=== PATIENT | female | born 1990 | race American Indian/Alaskan Native ===

== ENCOUNTER 2016-09-20 08:45 | Emergency (ER) | payer OTHER ==
[2016-09-20 08:56] VITALS: BMI 34.3
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
--- NOTE | 2016-09-20 10:29 | CT ---
PROCEDURE: CT MAXILLOFACIAL BONES WITHOUT CONTRAST HISTORY: right periorbital pain COMPARISON: None TECHNIQUE: Contiguous axial CT images of the maxillofacial bones were obtained. Coronal and sagittal reformats were generated. Radiation dose: Total exam DLP = 662 mGy-cm. This CT exam was performed using one or more of the following dose reduction techniques: Automated exposure control, adjustment of the mA and/or kV according to patient size, and/or use of iterative reconstruction technique. FINDINGS: NASAL BONES: Unremarkable. ORBITS: There is soft tissue thickening anterior to the right orbit. This is consistent with preseptal cellulitis PARANASAL SINUSES/ MASTOIDS: There is some mucosal thickening in the left maxillary sinus MAXILLA: Unremarkable. MANDIBLE/ TEMPOROMANDIBULAR JOINTS: Unremarkable. SKULL BASE: Unremarkable. TEMPORAL BONES: Middle ears and mastoid grossly unremarkable. OTHER FINDINGS: None. IMPRESSION: No evidence of fracture.There is soft tissue thickening anterior to the right orbit. This is consistent with preseptal cellulitis
[2016-09-20 10:30] VITALS: TEMP 98.7; O2SAT 99
[2016-09-20 11:04] VITALS: BP 118/63; PULSE 79; RESP 18
== END 2016-09-20 11:10 | disposition home or self-care (01) ==
LOC: ED 08:45
DX: H11.31 Conjunctival hemorrhage, right eye (principal); S00.11XA Contusion of right eyelid and periocular area, initial encounter; Y04.0XXA Assault by unarmed brawl or fight, initial encounter; Y92.009 Unspecified place in unspecified non-institutional (private) residence as the place of occurrence of the external cause

== ENCOUNTER 2017-01-24 15:01 | Emergency (ER) | payer OTHER ==
[2017-01-24 15:01] VITALS: BMI 34.3
[2017-01-24 15:20] VITALS: TEMP 98.8; O2SAT 98
--- NOTE | 2017-01-24 15:50 | ED PDOC ---
Arrival/HPI - General Historian: Patient EM Caveat: Acuity of Condition - History of Present Illness Time/Duration: Prior to Arrival Symptom Onset: Gradual Symptom Course: Unchanged Quality: Aching Activities at Onset: Rest Context: Home <Artie Wilder - Last Filed: 01/24/17 18:15> <Gina Ybarra - Last Filed: 01/24/17 18:35> - General Chief Complaint: Abdominal Pain Time Seen by Provider: 01/24/17 15:08 - History of Present Illness Narrative History of Present Illness (Text): 01/24/17 15:43 Patient is a 27 year old female presenting to [facility] ED 01/23/17 with complaints of abdominal pain, n/v, constipation, back pain, and headache. She states she has been unable to eat this past week due to constant nausea. Patient denies fevers and chills but admits to experiencing hot flashes. Patient discussed with her PMD regarding symptoms and was prescribed abx because she was also presenting with cold symptoms. Patient states according to her menses calendar, she is late , and also admits to an episode of unprotected sex about three weeks prior. Patient denies dysuria, increased frequency, dizziness, weakness, chest pain, shortness of breath. PMD: Dr. Tracey (Artie Wilder) Past Medical History - Provider Review Nursing Documentation Reviewed: Yes - Infectious Disease Hx of Infectious Diseases: None - Cardiac Hx Cardiac Disorders: No - Pulmonary Hx Respiratory Disorders: Yes Hx Asthma: Yes - Neurological Hx Neurological Disorder: No - HEENT Hx HEENT Disorder: No - Renal Hx Renal Disorder: No - Endocrine/Metabolic Hx Endocrine Disorders: No - Hematological/Oncological Hx Blood Disorders: No - Integumentary Hx Dermatological Disorder: No - Musculoskeletal/Rheumatological Hx Musculoskeletal Disorders: No - Gastrointestinal Hx Gastrointestinal Disorders: No - Genitourinary/Gynecological Hx Genitourinary Disorders: No - Psychiatric Hx Psychophysiologic Disorder: Yes Hx Depression: Yes (post ) Hx Substance Use: No - Surgical History Hx Section: Yes - Anesthesia Hx Anesthesia: Yes Hx Anesthesia Reactions: No Hx Malignant Hyperthermia: No <Artie Wilder - Last Filed: 01/24/17 18:15> Family/Social History - Physician Review Nursing Documentation Reviewed: Yes Family/Social History: Other (non contributory) Smoking Status: Never Smoked Hx Alcohol Use: No Hx Substance Use: No <Artie Wilder - Last Filed: 01/24/17 18:15> Allergies/Home Meds <Artie Wilder - Last Filed: 01/24/17 18:15> <Gina Ybarra - Last Filed: 01/24/17 18:35> Allergies/Adverse Reactions: Allergies No Known Allergies Allergy (Verified 01/24/17 15:20) Home Medications: Home Meds Medication Instructions Recorded Confirmed Azithromycin [Z-Rizwan] 1 tab PO DAILY 01/24/17 01/24/17 Review of Systems - Physician Review All systems were reviewed & negative as marked: Yes - Review of Systems Systems not reviewed;Unavailable: Acuity of Condition Constitutional: absent: Fatigue Eyes: absent: Vision Changes ENT: absent: Hearing Changes Respiratory: absent: SOB, Cough, Wheezing Cardiovascular: absent: Chest Pain, Palpitations Gastrointestinal: Abdominal Pain, Constipation, Nausea, Vomiting. absent: Diarrhea Genitourinary Female: absent: Dysuria, Frequency Musculoskeletal: Back Pain Skin: absent: Rash, Pruritis Neurological: Headache. absent: Dizziness, Focal Weakness Psychiatric: Normal <Artie Wilder - Last Filed: 01/24/17 18:15> Physical Exam Vital Signs Reviewed: Yes Temperature: Afebrile Blood Pressure: Normal Pulse: Regular Respiratory Rate: Normal Appearance: Positive for: Comfortable Pain Distress: None Mental Status: Positive for: Alert and Oriented X 3 - Systems Exam Head: Present: Atraumatic, Normocephalic Extroacular Muscles: Present: EOMI Mouth: Present: Moist Mucous Membranes. No: Dry Respiratory/Chest: Present: Clear to Auscultation, Good Air Exchange. No: Wheezes, Rhonchi Cardiovascular: Present: Regular Rate and Rhythm, Normal S1, S2. No: Murmurs Abdomen: Present: Tenderness (suprapubic ), Normal Bowel Sounds. No: Distention , Rebound, Guarding Upper Extremity: Present: Normal Inspection Lower Extremity: Present: Normal Inspection Neurological: Present: CN II-XII Intact Skin: Present: Warm, Normal Color Psychiatric: Present: Alert, Oriented x 3 <Artie Wilder - Last Filed: 01/24/17 18:15> Vital Signs Temp Pulse Resp BP Pulse Ox 01/24/17 18:21 69 18 111/71 98 01/24/17 15:16 98.8 F 76 16 109/77 98 Medical Decision Making <Artie Wilder - Last Filed: 01/24/17 18:15> <Gina Ybarra - Last Filed: 01/24/17 18:35> ED Course and Treatment: 01/24/17 15:56 Assessment 27 year old female with complaints of abdominal pain, back pain, nausea and vomiting Plan - POC urine - UA, Urine C&S - POC urine is positive - Recommend follow up with PMD and OBGYN (Artie Wilder) 01/24/17 18:31 Patient with noted history seen and examined with resident. Labs showing with beta HCG of 790 - sono done is too early for diagnosis at this time. Abdomen is nontender - will d/c on vitamins and diclegis and have her f/u OBGYN for repeat Beta HCG in two days. (Gina Ybarra) - Lab Interpretations Lab Results: 01/24/17 17:05 01/24/17 17:05 Lab Results 01/24/17 17:05: Sodium 139, Potassium 3.7, Chloride 101, Carbon Dioxide 28, Anion Gap 14, BUN 7, Creatinine 0.7, Est GFR ( Amer) > 60, Est GFR (Non- Af Amer) > 60, Random Glucose 85, Calcium 9.8, Total Bilirubin 0.2, AST 50 H, ALT 66 H, Alkaline Phosphatase 91, Total Protein 8.1, Albumin 4.4, Globulin 3.7 , Albumin/Globulin Ratio 1.2, Lipase 57 01/24/17 17:05: Beta HCG, Quant 790.83 H 01/24/17 17:05: WBC 5.1, RBC 4.47, Hgb 12.6, Hct 37.0, MCV 82.8, MCH 28.2, MCHC 34.1, RDW 13.4, Plt Count 301, MPV 9.4, Gran % 57.0, Lymph % (Auto) 33.1, Mcclain % (Auto) 7.9 H, Eos % (Auto) 1.8, Baso % (Auto) 0.2, Gran # 2.90, Lymph # 1.7, Mcclain # 0.4, Eos # 0.1, Baso # 0.01 01/24/17 16:00: Urine Color Yellow, Urine Appearance Clear, Urine pH 7.0, Ur Specific [place] 1.015, Urine Protein Negative, Urine Glucose (UA) Negative, Urine Ketones Negative, Urine Blood Negative, Urine Nitrate Negative, Urine Bilirubin Negative, Urine Urobilinogen 0.2, Ur Leukocyte Esterase Negative - RAD Interpretation Radiology Orders: 01/24/17 16:19 OB TRANSVAGINAL [US] Stat - Medication Orders Current Medication Orders: Discontinued Medications Famotidine (Pepcid) 20 mg IVP STAT STA Stop: 01/24/17 16:23 Last Admin: 01/24/17 17:10 Dose: 20 mg IVP Administration Document 01/24/17 17:10 EQ (Rec: 01/24/17 18:19 EQ [email or web address]) Charges for Administration # of IVP Administrations 1 Sodium Chloride (Sodium Chloride 0.9%) 1,000 mls @ 999 mls/hr IV .Q1H1M STA Stop: 01/24/17 17:22 Last Admin: 01/24/17 17:10 Dose: 999 mls/hr eMAR Start Stop Document 01/24/17 17:10 EQ (Rec: 01/24/17 18:19 EQ [email or web address]) Intravenous Solution Start Date 01/24/17 Start Time 17:10 Ondansetron HCl (Zofran Inj) 4 mg IVP STAT STA Stop: 01/24/17 16:23 Last Admin: 01/24/17 17:20 Dose: 4 mg IVP Administration Document 01/24/17 17:20 EQ (Rec: 01/24/17 18:20 EQ [email or web address]) Charges for Administration # of IVP Administrations 1 - PA / SANFORIZING MACHINE OPERATOR / Resident Statement DOROTA has reviewed & agrees with the documentation as recorded. / has examined the patient and agrees with the treatment plan. <Gina Ybarra - Last Filed: 01/24/17 18:35> Disposition/Present on Arrival - Present on Arrival Any Indicators Present on Arrival: No History of DVT/PE: No History of Uncontrolled Diabetes: No Urinary Catheter: No History of Decub. Ulcer: No History Surgical Site Infection Following: None - Disposition Have Diagnosis and Disposition been Completed?: Yes <Artie Wilder - Last Filed: 01/24/17 18:15> - Disposition Disposition Time: 18:10 Patient Plan: Discharge <Gina Ybarra - Last Filed: 01/24/17 18:35> - Disposition Diagnosis: Disposition: HOME/ ROUTINE Patient Problems: Current Active Problems Problem Status Onset Acute Condition: GOOD Additional Instructions: Drink plenty of fluids. vitamins daily. Diclegis as prescribed for nausea. Your beta-HCG level today was 790; you need to have it repeated by your OGBYN in 2 days. Follow up with your OBGYN. Return to the emergency department if any new concerning symptoms. Prescriptions: Doxylamine/Pyridoxine HCl (B6) [Mic Walls 10-10 mg Tablet] 2 tab PO HS #20 tablet. Multivit/Folic Acid/I [ Plus] 1 tab PO DAILY #100 tab Referrals: Lor Frank NP [Primary Care Provider] - Follow up with primary Forms: [employer] (Macedonian)
[2017-01-24 16:22] LABS: URINE BILIRUBIN NEGATIVE (NEGATIVE); URINE BLOOD NEGATIVE (NEGATIVE); URINE GLUCOSE (UA) NEGATIVE (NEGATIVE); URINE KETONE NEGATIVE (NEGATIVE); URINE LEUKOCYTE ESTERASE NEGATIVE Leu/uL (NEGATIVE); URINE PROTEIN NEGATIVE mg/dL (<30 mg/dL); URINE UROBILINOGEN 0.2 E.U./dL (<1 E.U./dL)
[2017-01-24] MEDS ORDERED: Sodium Chloride 0.9% 1,000 ML IV STA (16:22)
[2017-01-24 16:25] LABS: URINE APPEARANCE CLEAR (CLEAR); URINE COLOR YELLOW (YELLOW)
--- NOTE | 2017-01-24 17:03 | US ---
HISTORY: preg, abd pain - r/o ectopic. History of positive test done in ER-urine test. Blood work still not available. LMP 12/21/2016. Estimated gestational age by LMP is 4 weeks 6 days. COMPARISON: Transvaginal ultrasound 08/29/2015 TECHNIQUE: Transabdominal and transvaginal FINDINGS: UTERUS: Measures 11 by 7 x 8.2 cm. Anteverted. Normal in size and appearance. No fibroid or other mass lesion seen. Possible small intrauterine gestational sac 4.5 by 2.0 x 6.3 mm. No yolk sac, embryonic pole noted. ENDOMETRIUM: Measures 8 mm in diameter. Unremarkable. CERVIX: 3.8 cm RIGHT OVARY: Measures 3.0 x 1.3 x 1 point sick cm. No solid mass. Normal flow. LEFT OVARY: Measures 4.4 x 2.3 x 2.1 cm. No solid mass. Normal flow. A 3.0 x 1.6 x 2.0 cm corpus luteal cyst is suggested. FREE FLUID: There is some free fluid in the cul-de-sac noted OTHER FINDINGS: None. IMPRESSION: No intrauterine embryonic pole with cardiac activity noted. No ectopic noted. An ectopic is not excluded. A less than 6 week gestational intrauterine is still within the differential. Correlation with serial beta HCG levels recommended
[2017-01-24 17:10] LABS: BASO # 0.01 K/mm3 (0.0-2.0); BASO % 0.2 % (0.0-3.0); EOS # 0.1 (0.0-0.7); EOS % 1.8 % (1.5-5.0); GRAN # 2.9 (1.4-6.5); LYMPH # 1.7 (1.2-3.4); LYMPH % 33.1 % (22.0-35.0); MEAN CELL VOLUME 82.8 fl (80.0-105.0); MEAN CORPUSCULAR HEMOGLOBIN 28.2 pg (25.0-35.0); MEAN CORPUSCULAR HGB CONC 34.1 g/dl (31.0-37.0); MEAN PLATELET VOLUME 9.4 fl (7.0-11.0); MONO # 0.4 (0.1-0.6); MONO % 7.9 % (1.0-6.0); RED CELL DISTRIBUTION WIDTH 13.4 % (11.5-14.5); WHITE BLOOD COUNT 5.1 10^3/ul (4.5-11.0)
[2017-01-24 17:24] LABS: ALB/GLOB RATIO 1.2 (1.1-1.8); ALKALINE PHOSPHATASE 91 U/L (38-126); ALT/SGPT 66 U/L (7-56); AST/SGOT 50 U/L (14-36); BILIRUBIN,TOTAL 0.2 mg/dL (0.2-1.3); BLOOD UREA NITROGEN 7 mg/dL (7-21); CALCIUM 9.8 mg/dL (8.4-10.5); CARBON DIOXIDE 28 mmol/L (21-33); CHLORIDE 101 mmol/L (98-107); GFR AFRICAN-AMERICAN > 60; GLUCOSE,RANDOM 85 mg/dL (70-110); LIPASE 57 U/L (23-300); POTASSIUM 3.7 mmol/L (3.6-5.0); SODIUM 139 mmol/L (132-148); TOTAL PROTEIN 8.1 g/dL (5.8-8.3)
[2017-01-24 18:21] VITALS: BP 111/71; PULSE 69; RESP 18
== END 2017-01-24 18:20 | disposition home or self-care (01) ==
LOC: ED 15:01
DX: O26.891 Other specified pregnancy related conditions, first trimester (principal); Z3A.01 Less than 8 weeks gestation of pregnancy; R10.9 Unspecified abdominal pain; R51 Headache; M54.9 Dorsalgia, unspecified
CPT/HCPCS: 76817; 80053; 81003; 83690; 84702; 85025; 87086; 96374; 96375; 99284; J2405; J7040

== ENCOUNTER 2017-03-07 12:41 | Emergency (ER) | payer OTHER ==
[2017-03-07 12:42] VITALS: BMI 34.3
[2017-03-07 13:02] VITALS: TEMP 99; O2SAT 99
[2017-03-07] MEDS ORDERED: Sodium Chloride 0.9% 1,000 ML IV STA (13:10)
[2017-03-07 14:05] LABS: PH,URINE 6.5 (4.7-8.0); URINE BILIRUBIN NEGATIVE (NEGATIVE); URINE BLOOD LARGE (NEGATIVE); URINE GLUCOSE (UA) NEGATIVE (NEGATIVE); URINE KETONE NEGATIVE (NEGATIVE); URINE LEUKOCYTE ESTERASE SMALL Leu/uL (NEGATIVE); URINE PROTEIN TRACE mg/dL (<30 mg/dL); URINE UROBILINOGEN 0.2 E.U./dL (<1 E.U./dL)
[2017-03-07 14:05] LABS: BASO # 0.02 K/mm3 (0.0-2.0); BASO % 0.5 % (0.0-3.0); EOS # 0.2 (0.0-0.7); EOS % 5.7 % (1.5-5.0); GRAN # 1.99 (1.4-6.5); GRAN % 51.8 % (50.0-68.0); HEMATOCRIT 38.2 % (36.0-48.0); LYMPH # 1.3 (1.2-3.4); LYMPH % 34.5 % (22.0-35.0); MEAN CELL VOLUME 82.9 fl (80.0-105.0); MEAN CORPUSCULAR HGB CONC 33.8 g/dl (31.0-37.0); MEAN PLATELET VOLUME 10.4 fl (7.0-11.0); MONO # 0.3 (0.1-0.6); MONO % 7.5 % (1.0-6.0); RED CELL DISTRIBUTION WIDTH 13.4 % (11.5-14.5); WHITE BLOOD COUNT 3.9 10^3/ul (4.5-11.0)
[2017-03-07 14:08] LABS: URINE APPEARANCE SL CLOUDY (CLEAR); URINE COLOR YELLOW (YELLOW)
[2017-03-07 14:15] LABS: URINE BACTERIA FEW (NEG); URINE RBC 20 - 25 /hpf (0-2)
[2017-03-07 14:18] LABS: ALB/GLOB RATIO 1.4 (1.1-1.8); ALKALINE PHOSPHATASE 67 U/L (38-126); ALT/SGPT 24 U/L (7-56); AST/SGOT 23 U/L (14-36); BILIRUBIN,TOTAL 0.5 mg/dL (0.2-1.3); BLOOD UREA NITROGEN 9 mg/dL (7-21); CALCIUM 9.8 mg/dL (8.4-10.5); CARBON DIOXIDE 26 mmol/L (21-33); CHLORIDE 103 mmol/L (98-107); GFR AFRICAN-AMERICAN > 60; GLUCOSE,RANDOM 91 mg/dL (70-110); POTASSIUM 4.2 mmol/L (3.6-5.0); SODIUM 138 mmol/L (132-148); TOTAL PROTEIN 7.6 g/dL (5.8-8.3)
--- NOTE | 2017-03-07 15:12 | US ---
HISTORY: bleeding 27-year-old female ; LMP 12/21/2016 ; positive test through ER. This is a follow-up exam to the prior 01/24/2017 study with the same LMP date provided and history of another positive test in the ER . As per discussion with Phylicia at the PA in the ER, patient's initial beta HCG with 790 01/24/2017. I believe the history that I have with suggest of a positive urine test at that time. The current beta HCG is 4715 . No interval the HCG levels are known. The patient is having minimal discomfort according to Phylicia. COMPARISON: 01/24/2017 TECHNIQUE: Endovaginal FINDINGS: UTERUS: Measures 11.5 x 7.3 x 6.7 cm. Normal in size and appearance. No fibroid or other mass lesion seen. The prior thickened endometrium was centered to the fundal level. An equivocal 4.5 x 2.0 x 6.3 mm tiny intrauterine gestational sac so questioned previously. Then no yolk sac or embryonic pole is noted. Patient is a clinical dates by LMP than were 4 weeks 6 days. Currently a mission a pin the gestational sac is lower in position closer to the cervix lower uterine body level with an equivocal irregularly shaped yolk sac is possible measuring 8 x 6 by 3 mm. No abnormal appearing embryonic pole is seen now. No sub endometrial/sub decidual hemorrhagic appearance suggested either. ENDOMETRIUM: As above CERVIX: As above RIGHT OVARY: Measures 3.0 x 1.8 x 1.4 cm cm. No solid mass. Normal flow. LEFT OVARY: Measures 3.4 x 2.5 x 2.0 cm. No solid mass. Normal flow. FREE FLUID: There is probable trace thread-like free fluid in the cul-de-sac -similar to what was noted previously. No interval increase free fluid in the cul-de-sac suggested OTHER FINDINGS: No extra uterine gestational sac appreciated IMPRESSION: No normal-appearing intrauterine gestation, no interval embryonic pole identified. Possible irregular yolk sac identified. No normal doubling beta HCG levels since the prior exam. Findings are concerning concerning for a a miscarriage in progress at the lower uterine body -cervical level now. An ectopic is not excluded. And continued clinical follow-up with serial beta HCG levels and imaging is advised. Current appearance is not consistent with a a ambrose of age of 10 weeks 6 days per LMP. Per the gestational sac size -a 6 week 1 day 0 weeks 4 day gestational stated development reached is suggested. Comments: Findings and recommendations were directly discussed with Phylicia at the PA in the ER on 03/07/2017 at approximately 3 o
--- NOTE | 2017-03-07 15:58 | ED PDOC ---
Arrival/HPI - General Chief Complaint: Female Genitourinary Time Seen by Provider: 03/07/17 13:00 Historian: Patient - History of Present Illness Narrative History of Present Illness (Text): 03/07/17 15:55 27-year-old female A1 presents today with 3 day history of vaginal bleeding. Patient states she's had a brownish vaginal discharge for the past 2 days and today she noticed bright red discharge. Patient states since arriving in the emergency room the bleeding has stopped. She is complaining of minimal abdominal cramping which has improved. She denies nausea or vomiting no chest pain or shortness of breath. She denies any urinary symptoms. Denies back pain. Denies fevers or chills. Patient states she has had 1 ultrasound and has seen the livestock yard supervisor multiple times with repeat beta hCGs. No other complaints Time/Duration: Other (3 days) Symptom Onset: Sudden Symptom Course: Improving Severity Level: 2 Past Medical History - Provider Review Nursing Documentation Reviewed: Yes - Travel History Have you recently traveled outside [place] w/in the past 3 mons?: No - Infectious Disease Hx of Infectious Diseases: None - Tetanus Immunization Tetanus Immunization: Unknown - Cardiac Hx Cardiac Disorders: No - Pulmonary Hx Respiratory Disorders: Yes Hx Asthma: Yes - Neurological Hx Neurological Disorder: No - HEENT Hx HEENT Disorder: No - Renal Hx Renal Disorder: No - Endocrine/Metabolic Hx Endocrine Disorders: No - Hematological/Oncological Hx Blood Disorders: No - Integumentary Hx Dermatological Disorder: No - Musculoskeletal/Rheumatological Hx Musculoskeletal Disorders: No - Gastrointestinal Hx Gastrointestinal Disorders: No - Genitourinary/Gynecological Hx Genitourinary Disorders: No - Psychiatric Hx Psychophysiologic Disorder: Yes Hx Depression: Yes (post ) Hx Substance Use: No - Surgical History Hx Section: Yes - Anesthesia Hx Anesthesia: Yes Hx Anesthesia Reactions: No Hx Malignant Hyperthermia: No Family/Social History - Physician Review Nursing Documentation Reviewed: Yes Family/Social History: Unknown Family HX Smoking Status: Never Smoked Hx Alcohol Use: No Hx Substance Use: No Allergies/Home Meds Allergies/Adverse Reactions: Allergies No Known Allergies Allergy (Verified 03/07/17 13:02) Home Medications: Home Meds Medication Instructions Recorded Confirmed No Known Home Med 03/07/17 03/07/17 Review of Systems - Review of Systems Constitutional: absent: Fatigue, Fevers Respiratory: absent: SOB, Cough Cardiovascular: absent: Chest Pain, Palpitations Gastrointestinal: Abdominal Pain. absent: Constipation, Nausea Genitourinary Female: Vaginal Bleeding. absent: Frequency, Hematuria, Vaginal Discharge Musculoskeletal: absent: Arthralgias, Back Pain, Neck Pain Skin: absent: Rash, Pruritis Neurological: absent: Headache, Dizziness Psychiatric: absent: Anxiety, Depression, Suicidal Ideation Physical Exam Vital Signs Reviewed: Yes Vital Signs Temp Pulse Resp BP Pulse Ox 03/07/17 15:25 74 18 117/75 99 03/07/17 12:59 99 F 70 16 115/81 99 Temperature: Afebrile Blood Pressure: Normal Pulse: Regular Respiratory Rate: Normal Appearance: Positive for: Well-Appearing, Non-Toxic, Comfortable Pain Distress: None Mental Status: Positive for: Alert and Oriented X 3 - Systems Exam Head: Present: Atraumatic Mouth: Present: Moist Mucous Membranes Neck: Present: Normal Range of Motion Respiratory/Chest: Present: Clear to Auscultation, Good Air Exchange. No: Respiratory Distress, Accessory Muscle Use Cardiovascular: Present: Regular Rate and Rhythm, Normal S1, S2. No: Murmurs Abdomen: Present: Normal Bowel Sounds. No: Tenderness, Distention, Peritoneal Signs, Rebound, Guarding Genitourinary/Pelvic Exam: Present: Normal External Genitalia, Vaginal Bleeding (small amount of vaginal bleeding noted; ), Cervical os Closed, Other ( chaparoned by Mildred GILL EMT). No: Vaginal Discharge, Vaginal Lesions, Adenexal Tenderness, Adenexal Mass, Cervical Motion Tendernes, Odor Back: Present: Normal Inspection. No: CVA Tenderness, Midline Tenderness Neurological: Present: GCS=15 Skin: Present: Warm, Dry, Normal Color. No: Rashes Psychiatric: Present: Alert, Oriented x 3 Medical Decision Making ED Course and Treatment: 03/07/17 15:58 Patient is nontoxic well appearing in no distress. vital signs are stable. Abdomen is soft nontender nondistended CBC: wnl CMP: wnl Beta hC.60 TYPE AND SCREEN: A+ Urinalysis: + blood, + 1-3 wbcs, + 6-8 epithelial cells, few bacteria Will send urine cultures. Ultrasound: IMPRESSION: No normal-appearing intrauterine gestation, no interval embryonic pole identified. Possible irregular yolk sac identified. No normal doubling beta HCG levels since the prior exam. Findings are concerning concerning for a a miscarriage in progress at the lower uterine body -cervical level now. An ectopic is not excluded. And continued clinical follow-up with serial beta HCG levels and imaging is advised. Current appearance is not consistent with a a ambrose of age of 10 weeks 6 days per LMP. Per the gestational sac size -a 6 week 1 day 0 weeks 4 day gestational stated development reached is suggested. Discussed all the results the patient. advised f/u with the nurse extern within the next 2 days. Pt states she has f/u appointment with MANAGER OF PROGRAM in 2 days. I advised repeat beta hcg in 2 days. I advised immediate return if symptoms worsen,persist or if new symptoms develop. copy of results given to patient to bring to tube sizer operator Impression: threatened Tylenol every 4 hours as needed for pain Increase fluids Followup with the tube sizer operator within the next 2 days Return immediately if symptoms worsen persist or if new symptoms develop: High fevers, heavy bleeding, severe abdominal pain, vomiting, diarrhea, dizziness or weakness or any other concerning symptoms develop. Repeat beta hCG in 48 hours 03/07/17 16:11 - Lab Interpretations Lab Results: 03/07/17 13:50 03/07/17 13:50 Lab Results 03/07/17 13:50: WBC 3.9 L D, RBC 4.61, Hgb 12.9, Hct 38.2, MCV 82.9, MCH 28.0, MCHC 33.8, RDW 13.4, Plt Count 221, MPV 10.4, Gran % 51.8, Lymph % (Auto) 34.5, [place] % (Auto) 7.5 H, Eos % (Auto) 5.7 H, Baso % (Auto) 0.5, Gran # 1.99, Lymph # 1.3, [place] # 0.3, Eos # 0.2, Baso # 0.02 03/07/17 13:50: Blood Type A POSITIVE, Antibody Screen Negative, BBK History Checked No verified bt 03/07/17 13:50: Beta HCG, Quant 4715.60 H 03/07/17 13:50: Sodium 138, Potassium 4.2, Chloride 103, Carbon Dioxide 26, Anion Gap 13, BUN 9, Creatinine 0.8, Est GFR ( Amer) > 60, Est GFR (Non- Af Amer) > 60, Random Glucose 91, Calcium 9.8, Total Bilirubin 0.5, AST 23, ALT 24, Alkaline Phosphatase 67, Total Protein 7.6, Albumin 4.4, Globulin 3.2, Albumin/Globulin Ratio 1.4 03/07/17 13:45: Urine Color Yellow, Urine Appearance Sl cloudy, Urine pH 6.5, Ur Specific [place] 1.020, Urine Protein Trace H, Urine Glucose (UA) Negative, Urine Ketones Negative, Urine Blood Large H, Urine Nitrate Negative, Urine Bilirubin Negative, Urine Urobilinogen 0.2, Ur Leukocyte Esterase Small H, Urine RBC 20 - 25, Urine WBC 1 - 3, Ur Epithelial Cells 6 - 8, Urine Bacteria Few - RAD Interpretation Radiology Orders: 03/07/17 13:39 OB TRANSVAGINAL [US] Stat - Medication Orders Current Medication Orders: Discontinued Medications Sodium Chloride (Sodium Chloride 0.9%) 1,000 mls @ 999 mls/hr IV .Q1H1M STA Stop: 03/07/17 14:10 Last Admin: 03/07/17 13:57 Dose: 999 mls/hr eMAR Start Stop Document 03/07/17 13:57 [email or web address] (Rec: 03/07/17 13:57 [id number]) Intravenous Solution Start Date 03/07/17 Start Time 13:57 End Date 03/07/17 Disposition/Present on Arrival - Present on Arrival Any Indicators Present on Arrival: No History of DVT/PE: No History of Uncontrolled Diabetes: No Urinary Catheter: No History of Decub. Ulcer: No History Surgical Site Infection Following: None - Disposition Have Diagnosis and Disposition been Completed?: Yes Diagnosis: Threatened Disposition: HOME/ ROUTINE Disposition Time: 16:01 Patient Plan: Discharge Patient Problems: Current Active Problems Problem Status Onset Threatened Acute Condition: GOOD Discharge Instructions (ExitCare): Threatened Miscarriage (ED) Additional Instructions: Tylenol every 4 hours as needed for pain Increase fluids Followup with the tube sizer operator within the next 2 days Return immediately if symptoms worsen persist or if new symptoms develop: High fevers, heavy bleeding, severe abdominal pain, vomiting, diarrhea, dizziness or weakness or any other concerning symptoms develop. Repeat beta hCG in 48 hours Referrals: Bj Howell MD [Staff Provider] - [facility] - Follow up with primary Forms: Bagel Nash (Serbian)
[2017-03-07 16:18] VITALS: BP 119/77; PULSE 69
[2017-03-07 16:25] VITALS: RESP 19
== END 2017-03-07 16:25 | disposition home or self-care (01) ==
LOC: ED 12:41
DX: O20.0 Threatened abortion (principal)
CPT/HCPCS: 76817; 80053; 81001; 84702; 85025; 86850; 86900; 87086; 99283; J7040

== ENCOUNTER 2017-03-07 21:50 | Observation (INO) | payer OTHER ==
[2017-03-07 21:58] VITALS: BMI 33.3
[2017-03-07] MEDS ORDERED: Sodium Chloride 0.9% 1,000 ML IV STA (22:27)
[2017-03-07] MEDS ORDERED: Morphine 5 MG/ML SYRINGE IVP STA (22:27)
[2017-03-07 22:57] LABS: BASO # 0.01 K/mm3 (0.0-2.0); BASO % 0.2 % (0.0-3.0); EOS # 0.2 (0.0-0.7); EOS % 2.7 % (1.5-5.0); GRAN # 4.33 (1.4-6.5); GRAN % 69.1 % (50.0-68.0); HEMATOCRIT 36.6 % (36.0-48.0); LYMPH # 1.5 (1.2-3.4); LYMPH % 23.9 % (22.0-35.0); MEAN CELL VOLUME 83.2 fl (80.0-105.0); MEAN CORPUSCULAR HGB CONC 33.6 g/dl (31.0-37.0); MEAN PLATELET VOLUME 10.5 fl (7.0-11.0); MONO # 0.3 (0.1-0.6); MONO % 4.1 % (1.0-6.0); RED CELL DISTRIBUTION WIDTH 13.3 % (11.5-14.5); WHITE BLOOD COUNT 6.3 10^3/ul (4.5-11.0)
--- NOTE | 2017-03-07 23:48 | ED PDOC ---
Arrival/HPI <BillFransisco leach - Last Filed: 03/08/17 01:00> - General Historian: Patient - History of Present Illness Time/Duration: Other (tonight) Symptom Onset: Gradual Symptom Course: Unchanged Activities at Onset: Light Context: Home <Jessica Mejia PA-C - Last Filed: 03/08/17 02:18> - General Chief Complaint: Female Genitourinary Time Seen by Provider: 03/07/17 22:08 - History of Present Illness Narrative History of Present Illness (Text): 03/07/17 22:25 27 year old female, A1, who presents to the Emergency department complaining of vaginal bleeding. Patient states she was seen in the emergency department earlier today and was diagnosed with a threatened . Patient states as she got home she began experiencing heavy bleeding with large clots and lower abdominal pain. Patient denies any fever, chills, nausea, vomiting, diarrhea, urinary symptoms, back pain, neck pain, headache, dizziness, or any other complaints. (Jessica Mejia PA-C) Past Medical History - Provider Review Nursing Documentation Reviewed: Yes - Infectious Disease Hx of Infectious Diseases: None - Tetanus Immunization Tetanus Immunization: Unknown - Cardiac Hx Cardiac Disorders: No - Pulmonary Hx Respiratory Disorders: Yes Hx Asthma: Yes - Neurological Hx Neurological Disorder: No - HEENT Hx HEENT Disorder: No - Renal Hx Renal Disorder: No - Endocrine/Metabolic Hx Endocrine Disorders: No - Hematological/Oncological Hx Blood Disorders: No - Integumentary Hx Dermatological Disorder: No - Musculoskeletal/Rheumatological Hx Musculoskeletal Disorders: No - Gastrointestinal Hx Gastrointestinal Disorders: No - Genitourinary/Gynecological Hx Genitourinary Disorders: No - Psychiatric Hx Psychophysiologic Disorder: Yes Hx Depression: Yes (post ) Hx Substance Use: No - Surgical History Hx Section: Yes - Anesthesia Hx Anesthesia: Yes Hx Anesthesia Reactions: No Hx Malignant Hyperthermia: No <Jessica Mejia PA-C - Last Filed: 03/08/17 02:18> Family/Social History - Physician Review Nursing Documentation Reviewed: Yes Family/Social History: Unknown Family HX Smoking Status: Never Smoked Hx Alcohol Use: No Hx Substance Use: No <Jessica Mejia PA-C - Last Filed: 03/08/17 02:18> Allergies/Home Meds <Bill,Robert - Last Filed: 03/08/17 01:00> <Jessica Mejia PA-C - Last Filed: 03/08/17 02:18> Allergies/Adverse Reactions: Allergies No Known Allergies Allergy (Verified 03/07/17 21:57) Home Medications: Home Meds Medication Instructions Recorded Confirmed No Known Home Med 03/07/17 03/07/17 Review of Systems - Physician Review All systems were reviewed & negative as marked: Yes - Review of Systems Constitutional: Normal. absent: Fevers Eyes: Normal ENT: Normal Respiratory: Normal. absent: SOB, Cough Cardiovascular: Normal. absent: Chest Pain Gastrointestinal: Abdominal Pain. absent: Diarrhea, Nausea, Vomiting Genitourinary Female: Vaginal Bleeding Musculoskeletal: Normal. absent: Back Pain, Neck Pain Skin: Normal. absent: Rash Neurological: Normal. absent: Headache, Dizziness Endocrine: Normal Hemo/Lymphatic: Normal Psychiatric: Normal <Jessica Mejia PA-C - Last Filed: 03/08/17 02:18> Physical Exam Vital Signs Reviewed: Yes Temperature: Afebrile Blood Pressure: Normal Pulse: Regular Respiratory Rate: Normal Appearance: Positive for: Well-Appearing, Non-Toxic, Comfortable Pain Distress: Moderate Mental Status: Positive for: Alert and Oriented X 3, other (Very anxious/ emotional) - Systems Exam Head: Present: Atraumatic, Normocephalic Pupils: Present: PERRL Extroacular Muscles: Present: EOMI Conjunctiva: Present: Normal Mouth: Present: Moist Mucous Membranes Neck: Present: Normal Range of Motion Respiratory/Chest: Present: Clear to Auscultation, Good Air Exchange. No: Respiratory Distress, Accessory Muscle Use Cardiovascular: Present: Regular Rate and Rhythm, Normal S1, S2. No: Murmurs Abdomen: Present: Tenderness (Moderate lower abdominal tenderness), Normal Bowel Sounds. No: Distention, Peritoneal Signs Genitourinary/Pelvic Exam: Present: Normal External Genitalia, Vaginal Bleeding (moderate to severe vaginal bleeding with several small to moderate sized clots) , Other (female EMT was present during the entire exam) Back: Present: Normal Inspection. No: CVA Tenderness, Midline Tenderness Upper Extremity: Present: Normal Inspection. No: Cyanosis, Edema Lower Extremity: Present: Normal Inspection. No: Edema Neurological: Present: GCS=15, CN II-XII Intact, Speech Normal Skin: Present: Warm, Dry, Normal Color. No: Rashes Psychiatric: Present: Alert, Oriented x 3, Normal Insight, Normal Concentration , Anxious (Very anxious/emotional) <Jessica Mejia PA-C - Last Filed: 03/08/17 02:18> Vital Signs Temp Pulse Resp BP Pulse Ox 03/08/17 01:55 17 100 03/08/17 01:53 98.5 F 57 L 17 108/57 L 100 03/07/17 21:50 98.3 F 88 18 137/45 L 99 Medical Decision Making <Fransisco Khan - Last Filed: 03/08/17 01:00> - Lab Interpretations I have reviewed the lab results: Yes <Jessica Mejia PA-C - Last Filed: 03/08/17 02:18> ED Course and Treatment: 03/07/17 22:25 Impression: 27 year old female complaining of heavy vaginal bleeding with clots and lower abdominal pain today. Plan: -- Labs -- IV fluids -- Zofran -- Morphine -- Reassess and disposition Prior Visits: Notes and results from previous visits were reviewed. Patient was seen in the Emergency department earlier today, had labwork and ultrasound performed. Beta-HC.6, blood type: A positive, hemoglobin: 12.9. US showed an irregularly shaped yolk sac. Progress Notes: Hgb is stable at 12.3. Patient still continues to c/o low abdominal pain and significant vaginal bleeding. On exam, patient is in mild painful distress, abdomen remains soft with lower abdominal tenderness. Patient given toradol IV. Case d/w Dr. Howell quality control systems manager mems integration engineer, states that he is available for consult and can be called, he request medical inpt observation by the hospitalist with him as consult. He states that as long as her Hgb is stable in the AM with improvement of vaginal bleeding, then she can be d/c tomorrow AM for outpatient f/u. Case d/w Dr. Navarro, agree with plan for inpt observation to tele. ( Jessica Mejia PA-C) - Lab Interpretations Lab Results: 03/07/17 22:54 Lab Results 03/07/17 22:54: WBC 6.3 D, RBC 4.40, Hgb 12.3, Hct 36.6, MCV 83.2, MCH 28.0, MCHC 33.6, RDW 13.3, Plt Count 218, MPV 10.5, Gran % 69.1 H, Lymph % (Auto) 23.9 , [place] % (Auto) 4.1, Eos % (Auto) 2.7, Baso % (Auto) 0.2, Gran # 4.33, Lymph # 1.5, [place] # 0.3, Eos # 0.2, Baso # 0.01 - Medication Orders Current Medication Orders: Discontinued Medications Sodium Chloride (Sodium Chloride 0.9%) 1,000 mls @ 1,000 mls/hr IV .Q1H STA Stop: 03/07/17 23:26 Last Admin: 03/07/17 22:53 Dose: 1,000 mls/hr eMAR Start Stop Document 03/07/17 22:53 [facility] (Rec: 03/07/17 22:[id number]) Intravenous Solution Start Date 03/07/17 Start Time 22:53 End Date 03/07/17 Ketorolac Tromethamine (Toradol) 30 mg IVP STAT STA Stop: 03/08/17 00:58 Last Admin: 03/08/17 01:53 Dose: 30 mg MAR Pain Assessment Document 03/08/17 01:53 [facility] (Rec: 03/08/17 01:[id number]) Pain Reassessment Is this a pain reassessment? No Sleep Is patient sleeping during reassessment? No Presence of Pain Presence of Pain Yes Pain Scale Used Pain Scale Used Numeric Location Upper or Lower Lower Pain Location Body Site Abdomen Description Description Constant Intensity of Pain at present 6 Pain Behavior Facial Grimacing Aggravating Factors Changing Position Alleviating Factors/Management Medication Techniques Alleviating Factors Medication IVP Administration Document 03/08/17 01:53 [facility] (Rec: 03/08/17 01:[id number]) Charges for Administration # of IVP Administrations 1 Morphine Sulfate (Morphine) 4 mg IVP STAT STA Stop: 03/07/17 22:28 Last Admin: 03/07/17 22:54 Dose: 4 mg IVP Administration Document 03/07/17 22:54 [email or web address] (Rec: 03/07/17 22:54 [id number]) Charges for Administration # of IVP Administrations 1 Ondansetron HCl (Zofran Inj) 4 mg IVP STAT STA Stop: 03/07/17 22:28 Last Admin: 03/07/17 22:54 Dose: 4 mg IVP Administration Document 03/07/17 22:54 [email or web address] (Rec: 03/07/17 22:54 [id number]) Charges for Administration # of IVP Administrations 1 - PA / FEEDMOBILE DRIVER / Resident Statement MD/DO has reviewed & agrees with the documentation as recorded. MD/DO has examined the patient and agrees with the treatment plan. <Fransisco Khan - Last Filed: 03/08/17 01:00> - Scribe Statement The provider has reviewed the documentation as recorded by the Scribe <Jessica Mejia PA-C - Last Filed: 03/08/17 02:18> - Scribe Statement Fabi Rincon All medical record entries made by the Scribe were at my direction and personally dictated by me. I have reviewed the chart and agree that the record accurately reflects my personal performance of the history, physical exam, medical decision making, and the department course for this patient. I have also personally directed, reviewed, and agree with the discharge instructions and disposition. (Jessica Mejia PA-C) Disposition/Present on Arrival <Fransisco Khan - Last Filed: 03/08/17 01:00> - Present on Arrival Any Indicators Present on Arrival: No History of DVT/PE: No History of Uncontrolled Diabetes: No Urinary Catheter: No History of Decub. Ulcer: No History Surgical Site Infection Following: None - Disposition Have Diagnosis and Disposition been Completed?: Yes Disposition Time: 00:30 Patient Plan: Observation (remote tele ) <Jessica Mejia PA-C - Last Filed: 03/08/17 02:18> - Disposition Diagnosis: Miscarriage Disposition: HOSPITALIZED Patient Problems: Current Active Problems Problem Status Onset Miscarriage Acute Condition: STABLE
[2017-03-08 01:54] VITALS: O2SAT 100
--- NOTE | 2017-03-08 02:02 | CP.PCM.HP ---
<RgCarson - Last Filed: 03/08/17 02:43> History of Present Illness - History of Present Illness History of Present Illness: This is a 27 year old female A2 with a history of asthma who comes in complaining of supra-pubic pain for the past one day. The patient is also complaining of dizziness and some weakness in conjunction with the pain. The patient recently was released from the emergency department earlier this day for light spotting. The patient at that time had a ultrasound done that showed an abnormal yolk sac. The patient currently denies any chest pain, shortness of breath, changes in vision, syncopal episodes, nausea, vomiting, sick contacts , or any other complaints. PMD: Denies OBGyn: [address]. Doesn't know name of doctor. Past medical history: Asthma Allergies: NKDA Medications: See MAR Past surgical history: Caesarean section (4). Social history: Occasional alcohol use. Denies smoking. Denies illicit drug use. Present on Admission - Present on Admission Any Indicators Present on Admission: No Review of Systems - Constitutional Constitutional: Weakness. absent: Chills, Headache, Snoring, Weight Loss - EENT Eyes: absent: Blurred Vision, Diplopia, Discharge, Loss of Peripheral Vision, Requires Corrective Lenses, Loss of Vision Ears: Dizziness. absent: Ear Discharge, Disequilibrium Nose/Mouth/Throat: absent: Nasal Congestion, Nasal Trauma, Nose Pain, Bleeding Gums, Dysphagia, Mouth Lesions - Cardiovascular Cardiovascular: absent: Chest Pain, Diaphoresis, Edema, Irregular Heart Rhythm, Palpitations, Pedal Edema, Syncope - Respiratory Respiratory: absent: Cough, Dyspnea, Hemoptysis, Chest Congestion - Gastrointestinal Gastrointestinal: Abdominal Pain. absent: Diarrhea, Nausea, Vomiting Additional comments: Suprapubic pain. - Genitourinary Genitourinary: absent: Change in Urinary Stream - Reproductive: Female Reproductive:Female: Abnormal Vaginal Bleeding - Menstruation Menstruation: Abnormal Vaginal Bleeding - Musculoskeletal Musculoskeletal: absent: Arthralgias, Myalgias, Stiffness, Tingling - Integumentary Integumentary: absent: Alopecia, Bleeding Lesions, Lesions - Neurological Neurological: Dizziness. absent: Abnormal Hearing, Numbness, Lack of Coordination, Radicular Pain, Tingling, Tremor - Psychiatric Psychiatric: absent: Behavioral Changes, Depression, Hopelessness, Panic Attacks - Endocrine Endocrine: absent: Deepening of Voice, Polydipsia, Polyphagia, Polyuria - Hematologic/Lymphatic Hematologic: absent: Easy Bleeding, Easy Bruising Past Patient History - Infectious Disease Hx of Infectious Diseases: None - Tetanus Immunizations Tetanus Immunization: Unknown - Past Social History Smoking Status: Never Smoked - CARDIAC Hx Cardiac Disorders: No - PULMONARY Hx Respiratory Disorders: Yes Hx Asthma: Yes - NEUROLOGICAL Hx Neurological Disorder: No - HEENT Hx HEENT Problems: No - RENAL Hx Chronic Kidney Disease: No - ENDOCRINE/METABOLIC Hx Endocrine Disorders: No - HEMATOLOGICAL/ONCOLOGICAL Hx Blood Disorders: No - INTEGUMENTARY Hx Dermatological Problems: No - MUSCULOSKELETAL/RHEUMATOLOGICAL Hx Musculoskeletal Disorders: No - GASTROINTESTINAL Hx Gastrointestinal Disorders: No - GENITOURINARY/GYNECOLOGICAL Hx Genitourinary Disorders: No - PSYCHIATRIC Hx Psychophysiologic Disorder: Yes Hx Depression: Yes (post ) Hx Substance Use: No - SURGICAL HISTORY Hx Section: Yes - ANESTHESIA Hx Anesthesia: Yes Hx Anesthesia Reactions: No Hx Malignant Hyperthermia: No Meds Allergies/Adverse Reactions: Allergies Allergy/AdvReac Type Severity Reaction Status Date / Time No Known Allergies Allergy Verified 03/07/17 21:57 Physical Exam - Head Exam Head Exam: ATRAUMATIC, NORMAL INSPECTION, NORMOCEPHALIC - Eye Exam Eye Exam: EOMI, Normal appearance, PERRL. absent: Periorbital tenderness Pupil Exam: NORMAL ACCOMODATION, PERRL. absent: Irregular, Unequal - ENT Exam ENT Exam: Mucous Membranes Moist, Normal Exam, Normal Oropharynx - Neck Exam Neck exam: Positive for: Normal Inspection. Negative for: Lymphadenopathy, Thyromegaly - Respiratory Exam Respiratory Exam: Clear to Auscultation Bilateral, NORMAL BREATHING PATTERN. absent: Chest Wall Tenderness, Prolonged Expiratory Phase, Respiratory Distress - Cardiovascular Exam Cardiovascular Exam: REGULAR RHYTHM, RRR, +S1, +S2. absent: Gallop, Rubs - GI/Abdominal Exam GI & Abdominal Exam: Normal Bowel Sounds, Tenderness (suprapubic tenderness.) - Exam Additional comments: Deferred Vaginal exam at request of Patient. - Extremities Exam Extremities exam: Positive for: normal inspection. Negative for: joint swelling , pedal edema, tenderness - Back Exam Back exam: NORMAL INSPECTION. absent: CVA tenderness (L), CVA tenderness (R), paraspinal tenderness - Neurological Exam Neurological exam: Alert, CN II-XII Intact, Oriented x3 - Psychiatric Exam Psychiatric exam: Normal Affect, Normal Mood - Skin Skin Exam: Dry, Normal Color, Warm Results - Vital Signs Recent Vital Signs: Last Vital Signs Temp 98.5 F 03/08/17 01:53 Pulse 57 L 03/08/17 01:53 Resp 17 03/08/17 01:55 BP 108/57 L 03/08/17 01:53 Pulse Ox 100 03/08/17 01:55 - Labs Result Diagrams: 03/07/17 22:54 Assessment & Plan - Assessment and Plan (Free Text) Assessment: This is a 27 year old female with a medical history of asthma who is being admitted for heavy 1st trimester bleeding. Plan: 1.Incomplete -Transvaginal u/s done earlier in the emergency department showed abnormal yolk sac. -Last LMP December 21, 2016. beta-hcg was positive in E.D. -Repeat Transvaginal Ultrasound for the A.M. will f/u with results. -IV fluids @125mls/hr -CBC q4. Vital signs q4. -Type and Screen. -PT/PTT ordered. Will f/u with results. -Ob-casket liner consulted. Will f/u with rec's. 2.h/o Asthma -asymptomatic at this time. GI ppx -Protonix DVT ppx -SCD's <Alba Smith - Last Filed: 03/08/17 02:58> Results - Vital Signs Recent Vital Signs: Last Vital Signs Temp 98.5 F 03/08/17 01:53 Pulse 57 L 03/08/17 01:53 Resp 17 03/08/17 01:55 BP 108/57 L 03/08/17 01:53 Pulse Ox 100 03/08/17 01:55 - Labs Result Diagrams: 03/07/17 22:54 Attending/Attestation - Attestation I have personally seen and examined this patient.: Yes I have fully participated in the care of the patient.: Yes I have reviewed all pertinent clinical information: Yes Notes (Text): 03/08/17 02:54 Patient is ,had 2 abortions. She did not want another vaginal examination,as she was examined twice in the ER she stated.
[2017-03-08] MEDS ORDERED: Morphine 5 MG/ML SYRINGE IVP PRN ×2 (02:09→02:25)
[2017-03-08] MEDS ORDERED: Sodium Chloride 0.9% 1,000 ML IV SCH (02:15)
[2017-03-08 04:39] LABS: MEAN CELL VOLUME 82.9 fl (80.0-105.0); MEAN CORPUSCULAR HEMOGLOBIN 27.6 pg (25.0-35.0); MEAN CORPUSCULAR HGB CONC 33.3 g/dl (31.0-37.0); MEAN PLATELET VOLUME 10.3 fl (7.0-11.0); RED CELL DISTRIBUTION WIDTH 13.4 % (11.5-14.5); WHITE BLOOD COUNT 7.5 10^3/ul (4.5-11.0)
[2017-03-08 04:47] LABS: ALB/GLOB RATIO 1.3 (1.1-1.8); ALKALINE PHOSPHATASE 59 U/L (38-126); ALT/SGPT 22 U/L (7-56); AST/SGOT 20 U/L (14-36); BILIRUBIN,TOTAL 0.5 mg/dL (0.2-1.3); BLOOD UREA NITROGEN 8 mg/dL (7-21); CALCIUM 8.7 mg/dL (8.4-10.5); CARBON DIOXIDE 24 mmol/L (21-33); CHLORIDE 106 mmol/L (98-107); GFR AFRICAN-AMERICAN > 60; GLUCOSE,RANDOM 105 mg/dL (70-110); POTASSIUM 3.8 mmol/L (3.6-5.0); SODIUM 137 mmol/L (132-148); TOTAL PROTEIN 6.4 g/dL (5.8-8.3)
[2017-03-08 04:48] LABS: INR 1.24 (0.93-1.08); PARTIAL THROMBOPLASTIN TIME 27.3 Seconds (25.1-36.5)
[2017-03-08 06:19] LABS: HEMATOCRIT 32.6 % (36.0-48.0); MEAN CELL VOLUME 82.7 fl (80.0-105.0); MEAN CORPUSCULAR HEMOGLOBIN 27.7 pg (25.0-35.0); MEAN CORPUSCULAR HGB CONC 33.4 g/dl (31.0-37.0); MEAN PLATELET VOLUME 10.3 fl (7.0-11.0); RED CELL DISTRIBUTION WIDTH 13.5 % (11.5-14.5); WHITE BLOOD COUNT 7.6 10^3/ul (4.5-11.0)
[2017-03-08 08:05] VITALS: BP 93/50; PULSE 59; RESP 18; TEMP 98.1
[2017-03-08 11:19] LABS: HEMATOCRIT 32.4 % (36.0-48.0); MEAN CELL VOLUME 83.5 fl (80.0-105.0); MEAN CORPUSCULAR HEMOGLOBIN 28.1 pg (25.0-35.0); MEAN CORPUSCULAR HGB CONC 33.6 g/dl (31.0-37.0); MEAN PLATELET VOLUME 10.1 fl (7.0-11.0); RED CELL DISTRIBUTION WIDTH 13.5 % (11.5-14.5); WHITE BLOOD COUNT 5.8 10^3/ul (4.5-11.0)
--- NOTE | 2017-03-08 12:21 | US ---
HISTORY: heavy vaginal bleeding COMPARISON: 03/07/2017 and 01/24/2017. TECHNIQUE: FINDINGS: UTERUS: Measures 12.3 x 6.9 x 8.3 cm. Anteverted and enlarged. No fibroid or other mass lesion seen. ENDOMETRIUM: The central endometrial echo complex measures 16 mm. No evidence of intrauterine gestation. CERVIX: There is small amount of fluid in the endocervical canal. The previously identified irregular gestational sac is no longer visualized. RIGHT OVARY: Measures 2.4 x 2.9 x 1.6 cm. No solid mass. Normal flow. LEFT OVARY: Measures 2.7 x 3.5 x 1.4 cm. No solid mass. Normal flow. FREE FLUID: There is small amount of free fluid in the cul de sac. OTHER FINDINGS: None. IMPRESSION: Findings are most compatible with complete with residual small amount of fluid/hemorrhage in the endocervical canal.
--- NOTE | 2017-03-08 12:49 | CP.PCM.DIS ---
<Colin Ly - Last Filed: 03/08/17 12:40> Provider - Provider Date of Admission: 03/08/17 00:57 Attending physician: Nay Russell MD Primary care physician: NO PRIMARY CARE PROVIDER Consults: OB-Product Strategy Director: Dante Time Spent in preparation of Discharge (in minutes): 35 Hospital Course - Lab Results Lab Results: Most Recent Lab Values WBC 5.8 10^3/ul (4.5-11.0) D 03/08/17 11:07 RBC 3.88 10^6/uL (3.5-6.1) 03/08/17 11:07 Hgb 10.9 g/dL (12.0-16.0) L 03/08/17 11:07 Hct 32.4 % (36.0-48.0) L 03/08/17 11:07 MCV 83.5 fl (80.0-105.0) 03/08/17 11:07 MCH 28.1 pg (25.0-35.0) 03/08/17 11:07 MCHC 33.6 g/dl (31.0-37.0) 03/08/17 11:07 RDW 13.5 % (11.5-14.5) 03/08/17 11:07 Plt Count 195 10^3/uL (120.0-450.0) 03/08/17 11:07 MPV 10.1 fl (7.0-11.0) 03/08/17 11:07 Gran % 69.1 % (50.0-68.0) H 03/07/17 22:54 Lymph % (Auto) 23.9 % (22.0-35.0) 03/07/17 22:54 [place] % (Auto) 4.1 % (1.0-6.0) 03/07/17 22:54 Eos % (Auto) 2.7 % (1.5-5.0) 03/07/17 22:54 Baso % (Auto) 0.2 % (0.0-3.0) 03/07/17 22:54 Gran # 4.33 (1.4-6.5) 03/07/17 22:54 Lymph # 1.5 (1.2-3.4) 03/07/17 22:54 [place] # 0.3 (0.1-0.6) 03/07/17 22:54 Eos # 0.2 (0.0-0.7) 03/07/17 22:54 Baso # 0.01 K/mm3 (0.0-2.0) 03/07/17 22:54 PT 13.7 SECONDS (9.4-12.5) H 03/08/17 04:15 INR 1.24 (0.93-1.08) H 03/08/17 04:15 APTT 27.3 Seconds (25.1-36.5) 03/08/17 04:15 Sodium 137 mmol/L (132-148) 03/08/17 04:15 Potassium 3.8 mmol/L (3.6-5.0) 03/08/17 04:15 Chloride 106 mmol/L (98-107) 03/08/17 04:15 Carbon Dioxide 24 mmol/L (21-33) 03/08/17 04:15 Anion Gap 11 (10-20) 03/08/17 04:15 BUN 8 mg/dL (7-21) 03/08/17 04:15 Creatinine 0.7 mg/dL (0.7-1.2) 03/08/17 04:15 Est GFR ( Amer) > 60 03/08/17 04:15 Est GFR (Non-Af Amer) > 60 03/08/17 04:15 Random Glucose 105 mg/dL (70-110) 03/08/17 04:15 Calcium 8.7 mg/dL (8.4-10.5) 03/08/17 04:15 Total Bilirubin 0.5 mg/dL (0.2-1.3) 03/08/17 04:15 AST 20 U/L (14-36) 03/08/17 04:15 ALT 22 U/L (7-56) 03/08/17 04:15 Alkaline Phosphatase 59 U/L (38-126) 03/08/17 04:15 Total Protein 6.4 g/dL (5.8-8.3) 03/08/17 04:15 Albumin 3.6 g/dL (3.0-4.8) 03/08/17 04:15 Globulin 2.8 gm/dL 03/08/17 04:15 Albumin/Globulin Ratio 1.3 (1.1-1.8) 03/08/17 04:15 Beta HCG, Quant 1984.40 mIU/mL (0-6.15) H 03/08/17 09:00 - Hospital Course Hospital Course: This is a 27 yo AA F with PMH of asthma who represented to [facility] with worsening vaginal bleeding, now passing clots, and was admitted for suspected threatened . Initial Transvaginal US was notable for "No normal-appearing intrauterine gestation... concerning for a a miscarriage in progress at the lower uterine body." Repeat B-HCG was notable for halving of the amount from last night, and she reported passing multiple clots this AM while on the toilet , confirmed by nursing. Repeat Transvaginal US was obtained today, read as likely complete . Discussed with the OBGyn following the case, Dr. Howell, who stated this is likely complete miscarriage with no intervention available to prevent. Recommended Methergine 0.2mg x1 for symptom management, and instructed to discharge patient and have her follow up with him today in the office or with her regular OBGyn tomorrow as originally planned. He was not concerned with the minor drop in Hgb, stating is was expected given the current condition, and the overall amount decreased is unconcerning at this time. Findings and recommendations discussed with patient; she expresses understanding of the situation and states that she would like to follow up with her regular OBGyn tomorrow. Emotional support provided, all questions answered to her satisfaction, and then she was discharged. Patient seen, examined, and reviewed with attending, Dr. Russell. Discharge Exam - Head Exam Head Exam: ATRAUMATIC, NORMAL INSPECTION, NORMOCEPHALIC - Eye Exam Eye Exam: EOMI, Normal appearance. absent: Conjunctival injection, Scleral icterus Pupil Exam: absent: Irregular, Unequal - ENT Exam ENT Exam: Mucous Membranes Moist - Neck Exam Neck exam: Full Rom, Normal Inspection - Respiratory Exam Respiratory Exam: Clear to PA & Lateral, NORMAL BREATHING PATTERN, UNREMARKABLE - Cardiovascular Exam Cardiovascular Exam: REGULAR RHYTHM, RRR, +S1, +S2 - GI/Abdominal Exam GI & Abdominal Exam: Normal Bowel Sounds, Soft, Unremarkable. absent: Tenderness - Extremities Exam Extremities exam: full ROM, normal capillary refill, normal inspection, pedal pulses present - Back Exam Back exam: absent: CVA tenderness (L), CVA tenderness (R) - Neurological Exam Neurological exam: Alert, CN II-XII Intact, Oriented x3 - Psychiatric Exam Psychiatric exam: Normal Affect, Normal Mood Additional comments: Accepting of condition, does not appear to be agitated/anxious/in denial - Skin Skin Exam: Dry, Intact, Normal Color, Warm Discharge Plan - Follow Up Plan Condition: STABLE Disposition: HOME/ ROUTINE Patient education suggested?: Yes Instructions: Spontaneous Miscarriage (DC) Additional Instructions: Please follow up with your PMD within 1 week. Please follow up with your OB-Product Strategy Director tomorrow. Some vaginal bleeding is normal in this condition. If you begin to bleed continuously/non-stop or become lightheaded/dizzy/feel like you are going to pass out while bleeding, return to the hospital immediately. Referrals: PCP,NO [Primary Care Provider] - Follow up with primary <Nay Russell - Last Filed: 03/08/17 17:28> Provider - Provider Date of Admission: 03/08/17 00:57 Attending physician: Nay Russell MD Primary care physician: NO PRIMARY CARE PROVIDER Hospital Course - Lab Results Lab Results: Most Recent Lab Values WBC 5.8 10^3/ul (4.5-11.0) D 03/08/17 11:07 RBC 3.88 10^6/uL (3.5-6.1) 03/08/17 11:07 Hgb 10.9 g/dL (12.0-16.0) L 03/08/17 11:07 Hct 32.4 % (36.0-48.0) L 03/08/17 11:07 MCV 83.5 fl (80.0-105.0) 03/08/17 11:07 MCH 28.1 pg (25.0-35.0) 03/08/17 11:07 MCHC 33.6 g/dl (31.0-37.0) 03/08/17 11:07 RDW 13.5 % (11.5-14.5) 03/08/17 11:07 Plt Count 195 10^3/uL (120.0-450.0) 03/08/17 11:07 MPV 10.1 fl (7.0-11.0) 03/08/17 11:07 Gran % 69.1 % (50.0-68.0) H 03/07/17 22:54 Lymph % (Auto) 23.9 % (22.0-35.0) 03/07/17 22:54 [place] % (Auto) 4.1 % (1.0-6.0) 03/07/17 22:54 Eos % (Auto) 2.7 % (1.5-5.0) 03/07/17 22:54 Baso % (Auto) 0.2 % (0.0-3.0) 03/07/17 22:54 Gran # 4.33 (1.4-6.5) 03/07/17 22:54 Lymph # 1.5 (1.2-3.4) 03/07/17 22:54 [place] # 0.3 (0.1-0.6) 03/07/17 22:54 Eos # 0.2 (0.0-0.7) 03/07/17 22:54 Baso # 0.01 K/mm3 (0.0-2.0) 03/07/17 22:54 PT 13.7 SECONDS (9.4-12.5) H 03/08/17 04:15 INR 1.24 (0.93-1.08) H 03/08/17 04:15 APTT 27.3 Seconds (25.1-36.5) 03/08/17 04:15 Sodium 137 mmol/L (132-148) 03/08/17 04:15 Potassium 3.8 mmol/L (3.6-5.0) 03/08/17 04:15 Chloride 106 mmol/L (98-107) 03/08/17 04:15 Carbon Dioxide 24 mmol/L (21-33) 03/08/17 04:15 Anion Gap 11 (10-20) 03/08/17 04:15 BUN 8 mg/dL (7-21) 03/08/17 04:15 Creatinine 0.7 mg/dL (0.7-1.2) 03/08/17 04:15 Est GFR ( Amer) > 60 03/08/17 04:15 Est GFR (Non-Af Amer) > 60 03/08/17 04:15 Random Glucose 105 mg/dL (70-110) 03/08/17 04:15 Calcium 8.7 mg/dL (8.4-10.5) 03/08/17 04:15 Total Bilirubin 0.5 mg/dL (0.2-1.3) 03/08/17 04:15 AST 20 U/L (14-36) 03/08/17 04:15 ALT 22 U/L (7-56) 03/08/17 04:15 Alkaline Phosphatase 59 U/L (38-126) 03/08/17 04:15 Total Protein 6.4 g/dL (5.8-8.3) 03/08/17 04:15 Albumin 3.6 g/dL (3.0-4.8) 03/08/17 04:15 Globulin 2.8 gm/dL 03/08/17 04:15 Albumin/Globulin Ratio 1.3 (1.1-1.8) 03/08/17 04:15 Beta HCG, Quant 1984.40 mIU/mL (0-6.15) H 03/08/17 09:00 Attending/Attestation - Attestation I have personally seen and examined this patient.: Yes I have fully participated in the care of the patient.: Yes I have reviewed all pertinent clinical information, including history, physical exam and plan: Yes Notes (Text): 03/08/17 17:26 Patient was seen and examined with medical education manager. Agreed with resident assessment and plan. 27 yrs old female , has , confirmed on repeat Vaginal USG and dropping beta HCG level. Patient is not having any dizziness, chest pain, or palpitation.She is not dyspnic. 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 Management plan was discussed in detail with patient Education was provided.
== END 2017-03-08 17:35 | disposition home or self-care (01) ==
LOC: ED 21:50 → ERH 03-08 00:57 → 3RNO 03-08 02:20
PROVIDERS: ADMIT Internal Medicine; ATTEND Internal Medicine
DX: J45.909 Unspecified asthma, uncomplicated (principal); O03.9 Complete or unspecified spontaneous abortion without complication
CPT/HCPCS: 36415; 76817; 80053; 84702; 85025; 85027; 85610; 85730; 96374; 96375; C9113; G0378; J1885; J2210; J2270; J2405; J7040